=== PATIENT | male | born 1995 | race Caucasian/White ===

== ENCOUNTER 2016-09-03 09:19 | Emergency (ER) | payer OTHER ==
[~2016-09-03] VITALS: Ht 182.9 cm; Wt 180.0 kg
[2016-09-03] MEDS ORDERED: ADDE30CA3 PO (09:42)
[2016-09-03] MEDS ORDERED: PRED10TA2 PO (10:54)
[2016-09-03] MEDS ORDERED: BENA25TA10 PO (10:54)
[2016-09-03 11:07] VITALS: BP 127/80
== END 2016-09-03 11:12 | disposition home or self-care (01) ==
LOC: M ED 09:19
DX: L23.7 Allergic contact dermatitis due to plants, except food (principal); L29.9 Pruritus, unspecified; T49.3X5A Adverse effect of emollients, demulcents and protectants, initial encounter; Z79.899 Other long term (current) drug therapy; F17.210 Nicotine dependence, cigarettes, uncomplicated

== ENCOUNTER 2017-07-06 06:35 | Emergency (ER) | payer OTHER ==
[2017-07-06 08:18] LABS: KETONE, URINE AUTO RFX NEGATIVE (NEGATIVE); NITRITE, URINE AUTO RFX NEGATIVE (NEGATIVE); RBC, URINE AUTO RFX 2 /HPF (0-3); SPECIFIC GRAVITY UR AUTO RFX 1.011 (1.002-1.035); SQUAM EPITHELIAL CELL UR AURFX 0 /HPF (0-6)
[2017-07-06] MEDS: cefTRIAXone SOD 250 MG VIAL (J0696) IM (08:42)
[2017-07-06] MEDS: ONDANSETRON 4 MG ORAL DISINTEGRATING TAB (Q0162 PER 1MG) PO (08:54)
[2017-07-06 09:01] LABS: LEUKOCYTE ESTERASE UR AUTO RFX 2+ (NEGATIVE); WBC, URINE AUTO RFX 19 /HPF (0-3)
[2017-07-06 10:29] LABS: CHLAMYDIA DNA AMPLIFICATION POSITIVE (NEGATIVE); GC DNA AMPLIFICATION NEGATIVE (NEGATIVE)
== END 2017-07-06 09:13 | disposition home or self-care (01) ==
LOC: M ED 06:35
DX: N45.1 Epididymitis (principal); F90.9 Attention-deficit hyperactivity disorder, unspecified type; F17.200 Nicotine dependence, unspecified, uncomplicated; Z79.899 Other long term (current) drug therapy
CPT/HCPCS: J0696